=== PATIENT | male | born 1990 | race Two or more races ===

== ENCOUNTER 2024-06-13 08:00 | Day surgery (SDC) | payer MEDICAID, SELFPAY ==
[2024-06-12 07:33] VITALS: BMI 39.4
[2024-06-12 08:33] LABS: Basophils # (Auto) 0.1 Thou/mm3 (0.0-0.2); Basophils % (Auto) 1 % (0-2.5); Eosinophils # (Auto) 0.2 Thou/mm3 (0.0-0.5); Eosinophils % (Auto) 3 % (0-10); Hematocrit 42.8 % (41.0-53.0); Hemoglobin 14.5 g/dL (13.5-16.0); Immature Granulocytes % (Auto) 1 % (0-0); Immature Granulocytes Auto 0.04 Thou/mm3 (0.00-0.00); Lymphocytes # (Auto) 1.8 Thou/mm3 (1.0-4.8); Lymphocytes % (Auto) 25 % (10-50); Mean Corpuscular HGB Conc 33.9 g/dl (31.0-37.0); Mean Corpuscular Hemoglobin 29.4 pg (25.0-35.0); Mean Corpuscular Volume 87 fL (80-100); Monocytes # (Auto) 0.5 Thou/mm3 (0.0-0.8); Monocytes % (Auto) 7 % (0-12); Neutrophils # (Auto) 4.5 Thou/mm3 (1.8-7.7); Neutrophils % (Auto) 64 % (37-80); Nucleated Red Blood Cell % 0 /100 WBC (0); Platelet Count 329 Thou/mm3 (140-440); RDW Standard Deviation 43.1 fL (35.1-43.9); Red Blood Count 4.93 Miln/mm3 (4.50-5.90)
[2024-06-12 08:57] LABS: Anion Gap 7 (7-16); BUN/Creatinine Ratio 14 Ratio (12-20); Blood Urea Nitrogen 11 mg/dL (9-23); Calcium 9.6 mg/dL (8.3-10.6); Chloride 105 mMol/L (98-107); Creatinine (Component) 0.8 mg/dL (0.6-1.3); Estimated Creatinine Clearance 168.9 mL/min (>60); Glucose 102 mg/dL (74-106); Osmolality,Calculated 276 (275-295); Potassium 4.5 mMol/L (3.4-5.1); Sodium 139 mMol/L (136-145); eGFR > 60 See Note
[2024-06-13] VITALS (9 sets, daily range): BP systolic 101–133; BP diastolic 64–79; PULSE 62–89; RESP 14–19; TEMP 36.1–36.3; O2SAT 95–99; BMI 38.9
--- NOTE | 2024-06-13 09:07 | ESHP_ITS ---
RE: HARLEY CRANE : 1990 DATE OF ADMISSION: 06/12/2024 HISTORY OF PRESENT ILLNESS: The patient is a 34-year-old gentleman desiring bilateral vasectomy. The patient has one child. Previous surgery is none. There is no history of diabetes mellitus. No history of hypertension. ALLERGIES: NONE KNOWN. MEDICATIONS: He takes Lexapro for anxiety and pantoprazole. PHYSICAL EXAMINATION: HEENT: Normal. Neck: Supple. Chest: Lungs are clear. Cardiovascular: Heart sounds are normal. Abdomen: Abdomen is soft without any organomegaly. No guarding. No rigidity. Extremities: Normal. IMPRESSION: The patient is desiring bilateral vasectomy for family planning. Plan, procedure risks and complications have been discussed with the patient. The patient has understood them and agreed to proceed. DT: 15::31 TT: 15:54:00 Ref: [id number] - TID: [id number]
--- NOTE | 2024-06-13 11:24 | SUR.PHASEI ---
pt received from OR in recovery bay 7. pt obtunded, breathing unlabored on 8l oxymask, oral airway in place. v/s stable. pt dressing to scrotal area cdi. report received from Dr. Brasher and Surjit Kumar.
[2024-06-13] MEDS: fentaNYL CIT INJ 50 mCg/ML AMP 2ML 25 MCG IV (12:22)
--- NOTE | 2024-06-13 12:30 | SUR.PHASEII ---
pt able to tolerate oral fluids without difficulty swallowing or nausea/vomiting.
--- NOTE | 2024-06-13 12:50 | SUR.PHASEII ---
pt awake and alert, breathing unlabored on room air. v/s stable. pt dressing to scrotum cdi. pt able to ambulate to wheelchair with steady gait. d/c instructions given with over the phone (child presence) and pt in room, all quesitons answered. pt d/c via wheelchair with all belongings.
--- NOTE | 2024-06-13 18:54 | ESOP_ITS ---
RE: HARLEY CRANE : 1990 DATE OF OPERATION: 06/13/2024 PREOPERATIVE DIAGNOSIS: The patient is desiring bilateral vasectomy for family planning. POSTOPERATIVE DIAGNOSIS: The patient is desiring bilateral vasectomy for family planning. PROCEDURE PERFORMED: Bilateral vasectomy. ANESTHESIA: General. INDICATION: The patient is a 34-year-old gentleman desiring bilateral vasectomy for family planning. Planned procedure, risks and complications have been discussed with the patient. The patient has understood them and agreed to proceed. DESCRIPTION OF PROCEDURE: After the patient was brought to the operating table under adequate general anesthesia and supine position, parts were prepped and draped in the usual fashion. The right vas deferens was made subcutaneous. A small transverse incision 0.5 cm long was made over the vas deferens. Dissection was then carried out. The vas deferens was isolated from surrounding structures. Two clamps were placed on vas deferens. The section between the clamps was excised and was sent for examination. The ends of the vas deferens were fulgurated using electrocautery and was tied with 3-0 chromic catgut sutures. Complete hemostasis was obtained. Skin wound was closed with interrupted sutures of 3-0 chromic catgut. In a similar fashion, left-sided vasectomy was also done. Local anesthetic was injected at the site of skin on both sides. Sterile dressing was then applied. The patient was then transferred to the recovery room in a satisfactory condition having tolerated the entire procedure well. Sponge count and needle count at the end of the procedure was found to be correct. Estimated blood loss was approximately 2 mL. DT: 11:40:57 TT: 18:52:00 Ref: [id number] - TID: [id number]
== END 2024-06-13 12:50 | disposition home or self-care (01) ==
PROVIDERS: PCP Family Medicine; Referring Provider Surgery; Visit Provider Surgery
PROC: (CPT 55250; principal; 2024-06-13 10:00)
DX: Z30.2 Encounter for sterilization (principal)
CPT/HCPCS: 55250; 36415; 80048; 85025; A4217; A4649; J0690; J1100; J1885; J2250; J2405; J2704; J3010; J3490; L8330; J0665